=== PATIENT | male | born 1935 | race Caucasian/White ===

== ENCOUNTER → 2017-01-09 | Outpatient (CLI) | payer MEDICARE, OTHER ==
--- NOTE | 2017-01-09 10:14 | RADIOLOGY REPORT (SQ) ---
EXAM DESCRIPTION: CHEST PA/LATERAL COMPLETED DATE/TIME: 01/09/2017 9:52 am REASON FOR STUDY: PRE OP COMPARISON: None. EXAM PARAMETERS: NUMBER OF VIEWS: two views TECHNIQUE: Digital Frontal and Lateral radiographic views of the chest acquired. RADIATION DOSE: NA LIMITATIONS: none FINDINGS: LUNGS AND PLEURA: No opacities, masses or pneumothorax. No pleural effusion. MEDIASTINUM AND HILAR STRUCTURES: No masses or contour abnormalities. HEART AND VASCULAR STRUCTURES: Heart normal size. No evidence for failure. BONES: No acute findings. HARDWARE: None in the chest. OTHER: No other significant finding. IMPRESSION: NO SIGNIFICANT RADIOGRAPHIC FINDING IN THE CHEST. TECHNICAL DOCUMENTATION: JOB ID: [id number] [employer]- All Rights Reserved
[2017-01-09 10:33] LABS: ABSOLUTE EOSINOPHILS # (AUTO) 0.1 10^3/uL (0.0-0.6); ABSOLUTE LYMPHOCYTES (AUTO) 1.4 10^3/uL (0.5-4.7); ABSOLUTE MONOCYTES (AUTO) 0.4 10^3/uL (0.1-1.4); ABSOLUTE NEUT (AUTO) 5.4 10^3/uL (1.7-8.2); BASOPHILS % (AUTO) 0.5 % (0-2); EOSINOPHILS % (AUTO) 1.7 % (0-6); HEMOGLOBIN 12.3 g/dL (13.5-17.0); HGB HCT DIFFERENCE -0.1; LYMPHOCYTES % (AUTO) 18.5 % (13-45); MEAN CORPUSCULAR HEMOGLOBIN 27.7 pg (27.0-33.4); MEAN CORPUSCULAR HGB CONC 33.2 g/dL (32.0-36.0); MEAN CORPUSCULAR VOLUME 83 fl (80-97); MONOCYTES % (AUTO) 5.9 % (3-13); RED BLOOD COUNT 4.44 10^6/uL (4.35-5.55); RED CELL DISTRIBUTION WIDTH 14.1 % (11.5-14.0); SEGMENTED NEUTROPHILS % (AUTO) 73.4 % (42-78); WHITE BLOOD COUNT 7.4 10^3/uL (4.0-10.5)
[2017-01-09 10:51] LABS: ANION GAP 13 (5-19); BLOOD UREA NITROGEN 28 mg/dL (7-20); CALCIUM 9.7 mg/dL (8.4-10.2); CARBON DIOXIDE 27 mmol/L (22-30); CHLORIDE 102 mmol/L (98-107); CREATININE RESULT 1.33 mg/dL (0.52-1.25); GLUCOSE 149 mg/dL (75-110); POTASSIUM 4.9 mmol/L (3.6-5.0); SODIUM 142.3 mmol/L (137-145)
[2017-01-09 11:10] LABS: APPEARANCE,URINE CLEAR; BILIRUBIN,URINE NEGATIVE (NEGATIVE); GLUCOSE, URINE NEGATIVE (NEGATIVE); KETONES,URINE NEGATIVE (NEGATIVE); LEUKOCYTE ESTERASE,URINE NEGATIVE (NEGATIVE); NITRITE,URINE NEGATIVE (NEGATIVE); PROTEIN,URINE NEGATIVE (NEGATIVE); URINE SPECIFIC GRAVITY 1.017
--- NOTE | 2017-01-09 23:12 | EKG REPORT ---
SEVERITY:- ABNORMAL ECG - A FIB PROBABLE INFERIOR INFARCT, AGE INDETERMINATE : Confirmed by: Linda Maxwell 09-Jan-2017 23:11:03
== END ==
LOC: OD 09:06
PROVIDERS: ATTEND Orthopaedic Surgery
DX: Z01.810 Encounter for preprocedural cardiovascular examination (principal); Z01.812 Encounter for preprocedural laboratory examination; Z01.818 Encounter for other preprocedural examination; M17.0 Bilateral primary osteoarthritis of knee
CPT/HCPCS: 36415; 71020; 80048; 81001; 83036; 85025; 93005; 93010

== ENCOUNTER → 2017-03-07 | Outpatient (CLI) | payer MEDICARE, OTHER ==
[2017-03-07 12:15] LABS: ABSOLUTE EOSINOPHILS # (AUTO) 0.1 10^3/uL (0.0-0.6); ABSOLUTE LYMPHOCYTES (AUTO) 1.4 10^3/uL (0.5-4.7); ABSOLUTE MONOCYTES (AUTO) 0.4 10^3/uL (0.1-1.4); ABSOLUTE NEUT (AUTO) 5.9 10^3/uL (1.7-8.2); BASOPHILS % (AUTO) 0.6 % (0-2); EOSINOPHILS % (AUTO) 1.6 % (0-6); HEMATOCRIT 37.8 % (37.9-51.0); HEMOGLOBIN 12.4 g/dL (13.5-17.0); LYMPHOCYTES % (AUTO) 18.3 % (13-45); MEAN CORPUSCULAR HEMOGLOBIN 26.9 pg (27.0-33.4); MEAN CORPUSCULAR HGB CONC 32.8 g/dL (32.0-36.0); MEAN CORPUSCULAR VOLUME 82 fl (80-97); MONOCYTES % (AUTO) 5.6 % (3-13); PLATELET COUNT 203 10^3/uL (150-450); RED CELL DISTRIBUTION WIDTH 15.2 % (11.5-14.0); SEGMENTED NEUTROPHILS % (AUTO) 73.9 % (42-78); TOTAL CELLS COUNTED % (AUTO) 100 %; WHITE BLOOD COUNT 7.9 10^3/uL (4.0-10.5)
[2017-03-07 12:27] LABS: APPEARANCE,URINE CLEAR; BILIRUBIN,URINE NEGATIVE (NEGATIVE); COLOR,URINE YELLOW; GLUCOSE, URINE NEGATIVE (NEGATIVE); KETONES,URINE NEGATIVE (NEGATIVE); LEUKOCYTE ESTERASE,URINE NEGATIVE (NEGATIVE); NITRITE,URINE NEGATIVE (NEGATIVE); PROTEIN,URINE NEGATIVE (NEGATIVE); URINE SPECIFIC GRAVITY 1.016
[2017-03-07 12:35] LABS: ANION GAP 16 (5-19); BLOOD UREA NITROGEN 35 mg/dL (7-20); CALCIUM 10.4 mg/dL (8.4-10.2); CARBON DIOXIDE 23 mmol/L (22-30); CHLORIDE 103 mmol/L (98-107); GLUCOSE 143 mg/dL (75-110); SODIUM 141.5 mmol/L (137-145)
--- NOTE | 2017-03-07 12:42 | RADIOLOGY REPORT (SQ) ---
EXAM DESCRIPTION: CHEST PA/LATERAL COMPLETED DATE/TIME: 03/07/2017 11:56 am REASON FOR STUDY: PRE OP COMPARISON: 01/09/2017 EXAM PARAMETERS: NUMBER OF VIEWS: two views TECHNIQUE: Digital Frontal and Lateral radiographic views of the chest acquired. RADIATION DOSE: NA LIMITATIONS: none FINDINGS: LUNGS AND PLEURA: No opacities, masses or pneumothorax. No pleural effusion. MEDIASTINUM AND HILAR STRUCTURES: No masses or contour abnormalities. HEART AND VASCULAR STRUCTURES: Heart normal size. No evidence for failure. BONES: No acute findings. HARDWARE: None in the chest. OTHER: No other significant finding. IMPRESSION: NO SIGNIFICANT RADIOGRAPHIC FINDING IN THE CHEST. TECHNICAL DOCUMENTATION: JOB ID: [id number] [employer]- All Rights Reserved
--- NOTE | 2017-03-07 13:34 | EKG REPORT ---
SEVERITY:- ABNORMAL ECG - ATRIAL FIBRILLATION PROBABLE INFERIOR INFARCT, OLD : Confirmed by: Ariel Marie MD 07-Mar-2017 13:34:06
== END ==
LOC: OD 11:15 → EDSTATUS 03-13 11:15
PROVIDERS: ATTEND Orthopaedic Surgery
DX: Z01.810 Encounter for preprocedural cardiovascular examination (principal); Z01.812 Encounter for preprocedural laboratory examination; Z01.818 Encounter for other preprocedural examination; M17.11 Unilateral primary osteoarthritis, right knee; I10 Essential (primary) hypertension; E11.9 Type 2 diabetes mellitus without complications
CPT/HCPCS: 36415; 71020; 80048; 81001; 83036; 85025; 93005; 93010

== ENCOUNTER 2017-04-29 08:46 | Inpatient (IN) | payer MEDICARE, OTHER ==
[2017-04-23 10:09] LABS: APPEARANCE,URINE CLEAR; BILIRUBIN,URINE NEGATIVE (NEGATIVE); COLOR,URINE YELLOW; GLUCOSE, URINE NEGATIVE (NEGATIVE); KETONES,URINE NEGATIVE (NEGATIVE); LEUKOCYTE ESTERASE,URINE NEGATIVE (NEGATIVE); NITRITE,URINE NEGATIVE (NEGATIVE); PROTEIN,URINE NEGATIVE (NEGATIVE); URINE SPECIFIC GRAVITY 1.019
[2017-04-23 10:10] LABS: ABSOLUTE EOSINOPHILS # (AUTO) 0.1 10^3/uL (0.0-0.6); ABSOLUTE LYMPHOCYTES (AUTO) 1.7 10^3/uL (0.5-4.7); ABSOLUTE MONOCYTES (AUTO) 0.5 10^3/uL (0.1-1.4); ABSOLUTE NEUT (AUTO) 6.8 10^3/uL (1.7-8.2); BASOPHILS % (AUTO) 0.4 % (0-2); EOSINOPHILS % (AUTO) 1.2 % (0-6); HEMATOCRIT 36.2 % (37.9-51.0); HEMOGLOBIN 11.8 g/dL (13.5-17.0); LYMPHOCYTES % (AUTO) 18.4 % (13-45); MEAN CORPUSCULAR HEMOGLOBIN 26.7 pg (27.0-33.4); MEAN CORPUSCULAR HGB CONC 32.5 g/dL (32.0-36.0); MEAN CORPUSCULAR VOLUME 82 fl (80-97); MONOCYTES % (AUTO) 5.8 % (3-13); PLATELET COUNT 182 10^3/uL (150-450); RED BLOOD COUNT 4.41 10^6/uL (4.35-5.55); RED CELL DISTRIBUTION WIDTH 16.3 % (11.5-14.0); SEGMENTED NEUTROPHILS % (AUTO) 74.2 % (42-78); TOTAL CELLS COUNTED % (AUTO) 100 %; WHITE BLOOD COUNT 9.2 10^3/uL (4.0-10.5)
[2017-04-23 10:32] LABS: ANION GAP 11 (5-19); BLOOD UREA NITROGEN 27 mg/dL (7-20); CALCIUM 10.1 mg/dL (8.4-10.2); CARBON DIOXIDE 29 mmol/L (22-30); CHLORIDE 104 mmol/L (98-107); GLUCOSE 96 mg/dL (75-110); POTASSIUM 4.7 mmol/L (3.6-5.0); SODIUM 143.9 mmol/L (137-145)
--- NOTE | 2017-04-23 22:42 | EKG REPORT ---
SEVERITY:- ABNORMAL ECG - ATRIAL FIBRILLATION PROBABLE INFERIOR INFARCT, AGE INDETERMINATE BORDERLINE R WAVE PROGRESSION, ANTERIOR LEADS : Confirmed by: Linda Maxwell 23-Apr-2017 22:42:12
[~2017-04-29 08:46] MED LIST: BUPIVACAINE INJ/PF LIPOSOME/PF 266 MG/20 ML SDV IJ PRN; IBUPROFEN 800 MG/NS 250 ML IV PRN; LACTATED RINGERS 1000 ML IV PRN; LIDOCAINE 0.5% INJ-PF (5 MG/ML) 50 ML SDV SUBCUT PRN; SCOPOLAMINE HYDROBROMIDE 1.5 MG PATCH.TD72 TOP PRN
--- NOTE | 2017-04-29 09:11 | Physician Advisory Note ---
Physician Advisor ProgressNote .: Pursuant to the plan for Eduardo Mendosa, I have reviewed the medical record for this patient. Physician Advisor Statement: Good documentation of co-morbidities, what worsens pain, use of cane & Mobic, exam findings, xray findings. Please specify WHICH ADLs are INTERFERED WITH (not just painful) due to OA knee. Status: Appropriate for Inpatient for TKA. Discussion: 81yo w/HTN, HLD, Afib on Eliquis, DM-2, pre-op anemia, overweight w /BMI 32.6, 2 colon blockages iin past, on Flomax (likely urinary obstruction problems), & spironolactone, HCTZ, Diovan (diuretics/ACEI, so increased risk for MEGAN & electrolyte disturbances). Will need assistance w/ADLs after d/c per pre-op screen. Thanks! CK
[2017-04-29 10:05] LABS: INTERNATIONAL RATION (INR) 1.03; PROTHROMBIN TIME 14.2 SEC (11.4-15.4)
[2017-04-29 10:06] LABS: PARTIAL THROMBOPLASTIN TIME 31.7 SEC (23.5-35.8)
--- NOTE | 2017-04-29 10:12 | EKG REPORT ---
SEVERITY:- ABNORMAL ECG - SINUS RHYTHM, ARTIFACTS, CONSIDER A FIB, REC REPEAT EKG VENTRICULAR PREMATURE COMPLEX PROBABLE INFERIOR INFARCT, AGE INDETERMINATE REPOL ABNRM SUGGESTS ISCHEMIA, DIFFUSE LEADS VS ARTIFACT : Confirmed by: Linda Maxwell 29-Apr-2017 10:12:07
[2017-04-29] MEDS: VANCOMYCIN HCL 1,000 MG in DEXTROSE 5%-WATER 250 ML IV PRN ×3 (10:20→16:51)
[2017-04-29] MEDS: LANSOPRAZOLE 15 MG TAB.RAP.DR PO PRN ×4 (10:20→16:47)
[2017-04-29 10:22] LABS: POTASSIUM 4.7 mmol/L (3.6-5.0)
[2017-04-29] MEDS: OXYCODONE HCL SR 10 MG TABLET PO PRN ×2 (10:50→16:48)
[2017-04-29] MEDS ORDERED: THROMBIN (BOVINE) TOPICAL 20000 UNIT VIAL ONE (10:55)
[2017-04-29] MEDS ORDERED: BUPIVACAINE INJ/PF LIPOSOME/PF 266 MG/20 ML SDV ONE (10:55)
[2017-04-29] MEDS ORDERED: THROMBIN (BOVINE) 5000 UNIT EPITAXIS KIT ONE (10:55)
[2017-04-29] MEDS ORDERED: ONDANSETRON HCL INJ/PF 4 MG/2 ML SDV ONE (11:12)
[2017-04-29] MEDS ORDERED: PROPOFOL INJ 200 MG/20 ML VIAL IV ONE (11:12)
[2017-04-29] MEDS ORDERED: DEXAMETHASONE SOD PHOSPHATE INJ 4 MG/1 ML VIAL ONE (11:12)
[2017-04-29] MEDS ORDERED: MIDAZOLAM 2 MG/2 ML INJ ONE (11:12)
[2017-04-29] MEDS ORDERED: TRANEXAMIC ACID INJ/PF 1,000 MG/10 ML SDV IV ONE ×3 (11:13→15:00)
[2017-04-29] MEDS ORDERED: FENTANYL CITRATE INJ/PF 100 MCG/2 ML AMPUL IV PRN ×2 (12:11)
[2017-04-29] MEDS ORDERED: MORPHINE SULFATE 10 MG/ML INJ IV PRN (12:11)
[2017-04-29] MEDS ORDERED: OXYCODONE-ACETAMINOPHEN 5-325 MG TABLET PO PRN ×2 (12:11)
[2017-04-29] MEDS ORDERED: MEPERIDINE HCL/PF INJ 25 MG/1 ML DISP.SYRIN IV PRN (12:11)
[2017-04-29] MEDS ORDERED: PROMETHAZINE HCL INJ 25 MG/1 ML VIAL IV PRN (12:11)
[2017-04-29] MEDS ORDERED: DIPHENHYDRAMINE HCL 50 MG/ML VIAL IV PRN ×2 (12:11→12:56)
--- NOTE | 2017-04-29 12:34 | Operative Report ---
Operative Report DATE OF SURGERY: 04/29/17 PREOPERATIVE DIAGNOSIS: Right knee arthritis OPERATION: Right knee arthroplasty SURGEON: VIRGIE FRASER 1ST [employer]ANT: ULI HURD ANESTHESIA: Spinal TISSUE REMOVED OR ALTERED: Bone to pathology ESTIMATED BLOOD LOSS: 100 PROCEDURE: Implants used: Femur: Cushing triathlon #5 CR femur Tibia: 5 tibia Tibial liner: 9 mm CS spacer Patella: 38 mm oval patella Procedure with the patient supine on the operating table the right the limb is prepped and draped in a sterile fashion. The limb was elevated for exsanguination and the tourniquet inflated to 280 torr. A standard midline median parapatellar approach the knee is taken. Access is gained to the femoral canal through the intercondylar notch. Intramedullary alignment instrumentation used to resect 10 mm of distal femur in 5 of valgus. Sizing guide indicated a size 5 femur. Appropriate cutting jig is then used to fashion anterior posterior and chamfer cuts. A trial reduction femurs performed and this is judged to be adequate. Attention was next turned to the tibia. Using an extra medullary alignment system 9 millimeters was resected off the lateral tibial plateau. This is sized to a size 5 tibia. A trial reduction was now performed with a 5 femur and a 5 tibia using a 9 millimeters spacer. It is full extension and central patellofemoral tracking. The articular surface the patella was next resected using an oscillating saw. All trial implants were removed. Polymethylmethacrylate is mixed and used to cement the above implants in place. On adequate curing the cement excess cement was removed the tourniquet was deflated hemostasis obtained the wound is then closed in layers using interrupted Vicryl followed by antonina. A sterile compressive dressing was applied and the patient returned to recovery room in satisfactory condition.
[2017-04-29] MEDS ORDERED: ONDANSETRON HCL INJ/PF 4 MG/2 ML SDV IV PRN (12:56)
[2017-04-29] MEDS ORDERED: ZOLPIDEM TARTRATE 5 MG TABLET PO PRN (12:56)
[2017-04-29] MEDS ORDERED: ONDANSETRON 4 MG TAB.RAPDIS PO PRN (12:56)
[2017-04-29] MEDS ORDERED: ACETAMINOPHEN 325 MG TABLET PO PRN (12:56)
[2017-04-29] MEDS ORDERED: MAG HYDROX/AL HYDROX/SIMETH SUSP 30 ML UDCUP PO PRN (12:56)
[2017-04-29] MEDS ORDERED: HYDROMORPHONE HCL INJ/PF 2 MG/ML AMPULE IV PRN (13:01)
--- NOTE | 2017-04-29 14:49 | RADIOLOGY REPORT (SQ) ---
EXAM DESCRIPTION: KNEE RIGHT 2 VIEWS COMPLETED DATE/TIME: 04/29/2017 2:19 pm REASON FOR STUDY: Post OP -Long Cassette in PACU M17.11 UNILATERAL PRIMARY OSTEOARTHRITIS, RIGHT KN EE COMPARISON: None. NUMBER OF VIEWS: Two view(s). TECHNIQUE: Digital radiographic images of the right knee post-procedure. LIMITATIONS: None. FINDINGS: BONES: No worrisome or unexpected findings post-procedure. DEVICE: Total knee replacement. SOFT TISSUES: No worrisome findings. Expected postoperative soft tissue changes. IMPRESSION: SATISFACTORY POSTOPERATIVE RIGHT KNEE. TECHNICAL DOCUMENTATION: JOB ID: [id number] [employer]- All Rights Reserved
[2017-04-29] MEDS: CEFAZOLIN INJ 1 GM VIAL IV PRN ×3 (16:45→16:51)
[2017-04-29] MEDS ORDERED: SPIRONOLACTONE 25 MG TABLET PO SCH (18:00)
[2017-04-29] MEDS: SPIRONOLACTONE 25 MG TABLET PO SCH (18:15)
[2017-04-29] MEDS ORDERED: ACETAMINOPHEN 100 ML IV ONE (19:00)
[2017-04-29] MEDS: IBUPROFEN 800 MG in NORMAL SALINE 250 ML IV SCH (19:53)
[2017-04-29] MEDS: OXYCODONE HCL SR 10 MG TABLET PO SCH (21:37)
[2017-04-29] MEDS: SIMVASTATIN 40 MG TABLET PO SCH (21:38)
[2017-04-29] MEDS: GABAPENTIN 300 MG CAPSULE PO SCH (21:38)
[2017-04-30] MEDS ORDERED: VANCOMYCIN HCL 1,000 MG in DEXTROSE 5%-WATER 250 ML IV ONE (00:56)
[2017-04-30] MEDS: IBUPROFEN 800 MG in NORMAL SALINE 250 ML IV SCH ×3 (03:10→20:12)
[2017-04-30] MEDS: SPIRONOLACTONE 25 MG TABLET PO SCH ×2 (05:19→17:53)
[2017-04-30] MEDS: LANSOPRAZOLE 30 MG TAB.RAP.DR PO SCH (05:19)
[2017-04-30 06:38] LABS: HEMATOCRIT 31.7 % (37.9-51.0); HEMOGLOBIN 10.3 g/dL (13.5-17.0); MEAN CORPUSCULAR HEMOGLOBIN 27.1 pg (27.0-33.4); MEAN CORPUSCULAR HGB CONC 32.5 g/dL (32.0-36.0); MEAN CORPUSCULAR VOLUME 83 fl (80-97); PLATELET COUNT 145 10^3/uL (150-450); RED CELL DISTRIBUTION WIDTH 15.9 % (11.5-14.0); WHITE BLOOD COUNT 8.7 10^3/uL (4.0-10.5)
[2017-04-30 06:56] LABS: ANION GAP 8 (5-19); CARBON DIOXIDE 29 mmol/L (22-30); CHLORIDE 103 mmol/L (98-107); GLUCOSE 185 mg/dL (75-110); SODIUM 139.9 mmol/L (137-145)
[2017-04-30 06:57] LABS: BLOOD UREA NITROGEN 28 mg/dL (7-20)
--- NOTE | 2017-04-30 07:06 | PDOC DISCHARGE SUMMARY ---
General - Admit/Disc Date/PCP Admission Date/Primary Care Provider: 04/29/17 08:46 LORIE PUGA MD Discharge Date: 04/30/17 - Discharge Diagnosis (1) Arthritis of right knee Is this a current diagnosis for this admission?: Yes - Additional Information Resuscitation Status: Full Code Discharge Diet: As Tolerated, Regular Discharge Activity: Activity As Tolerated, No Driving, No tub bath, Walk Frequently Home Medications: Apixaban [Eliquis 5 mg Tablet] 5 mg PO DAILY 03/07/17 Glimepiride 4 mg PO DAILY 03/07/17 Simvastatin [Zocor 40 mg Tablet] 40 mg PO QHS 03/07/17 Spironolactone 25 mg PO BID 03/07/17 Tamsulosin HCl 0.4 mg PO DAILY 03/07/17 Valsartan/Hydrochlorothiazide [Diovan Hct 160-12.5 mg Tab] 160 mg PO DAILY 03/07 Vit D3-Vit K/Berberine/Hops [Ostera Tablet] 2,000 unit PO DAILY 03/07/17 Gabapentin 300 mg PO QHS 04/23/17 Hydrocodone/Acetaminophen [Corona 5-325 mg Tablet] 1 tab PO ASDIR PRN 04/23/17 Meloxicam 7.5 mg PO DAILY 04/23/17 Metoprolol Succinate 12.5 mg PO DAILY 04/23/17 History of Present Illness History of Present Illness: SUNNY ADAM is a 81 year old male with progressive pain and decrease in functional mobility due to right knee arthritis. He is admitted to the hospital for elective total right knee arthroplasty. Hospital Course Hospital Course: 81-year-old white male with progressive pain and decreased functional mobility due to right knee arthritis. He is admitted through the OR and undergoes uncomplicated elective total right knee arthroplasty. He is taken to PACU in satisfactory condition. He is then transferred to the surgical floor where she was seen for weightbearing as tolerated by physical therapy and pain control by nursing staff and Dr. Blancas. He makes progress with physical therapy ambulating up to 60 feet independently. His pain was well controlled. He will be discharged to his home today with home health nursing, home physical therapy , wheeled walker, bedside commode. Physical Exam Vital Signs: Temp Pulse Resp BP Pulse Ox 36.6 C 74 16 124/62 98 04/30/17 04:17 04/30/17 04:17 04/30/17 04:17 04/30/17 04:17 04/30/17 04:17 Intake & Output 04/29/17 04/30/17 05/01/17 06:59 06:59 06:59 Intake Total 3090 Output Total 2300 Balance 790 General appearance: PRESENT: no acute distress, well-developed, well-nourished Head exam: PRESENT: atraumatic, normocephalic Respiratory exam: PRESENT: unlabored Pulses: PRESENT: normal dorsalis pedis pul, +2 pedal pulses bilateral Vascular exam: PRESENT: normal capillary refill Additional comments: Patient sitting upright in hospital bed with bilateral lower extremities in full extension. His OpSite compression dressing is in place and is clean dry and intact. This is removed and underlying OpSite dressings are clean dry and intact. These are left in place. There is minimal pedal edema and he has brisk capillary refill to bilateral lower extremities. His leg lengths are equal and his distal neurovascular exam is intact. Musculoskeletal exam: PRESENT: ambulatory Additional comments: Patient makes progress of physical therapy ambulating up to 60 feet independently. He will continue to work with home physical therapy to improve strength and range of motion of right lower extremity. Neurological exam: PRESENT: alert, awake, oriented to person, oriented to place , oriented to time, oriented to situation, CN II-XII grossly intact. ABSENT: motor sensory deficit Psychiatric exam: PRESENT: appropriate affect, normal mood. ABSENT: homicidal ideation, suicidal ideation Skin exam: PRESENT: dry, intact, warm. ABSENT: cyanosis, rash Results Laboratory Results: 04/30/17 05:16 04/29/17 04/30/17 09:41 05:16 WBC 8.7 RBC 3.80 L Hgb 10.3 L Hct 31.7 L MCV 83 MCH 27.1 MCHC 32.5 RDW 15.9 H Plt Count 145 L Potassium 4.7 Glucose 124 H Impressions: Knee X-Ray 04/29/17 12:57 IMPRESSION: SATISFACTORY POSTOPERATIVE RIGHT KNEE. Plan Discharge Plan: 81-year-old white male 1 day status post total right knee arthroplasty. Patient has made progress with physical therapy ambulating 60 feet independently. He will continue to work with home physical therapy to improve strength range of motion and distance of independent ambulation of right lower extremity. His pain has been well controlled in the hospital. His OpSite dressing is clean dry and intact and compression dressing was removed. He will be discharged to his home today with home health nursing, home physical therapy , wheeled walker and bedside commode. He will follow-up with [facility] for surgery Dr. Blancas 2 weeks postoperatively for reevaluation and staple removal. Time Spent: Less than 30 Minutes
[2017-04-30] MEDS: ASPIRIN 81 MG TABLET, CHEWABLE PO SCH (09:47)
[2017-04-30] MEDS: OXYCODONE HCL SR 10 MG TABLET PO SCH ×2 (09:47→21:36)
[2017-04-30] MEDS: VALSARTAN 160 MG TABLET PO SCH (09:54)
[2017-04-30] MEDS: TAMSULOSIN HCL 0.4 MG CAP.SR.24H PO SCH (09:55)
[2017-04-30] MEDS: METOPROLOL SUCCINATE 25 MG TAB.SR.24H PO SCH (09:55)
[2017-04-30] MEDS: GLIMEPIRIDE 4 MG TABLET PO SCH (09:56)
[2017-04-30] MEDS: HYDROCHLOROTHIAZIDE 12.5 MG CAPSULE PO SCH (09:56)
[2017-04-30] MEDS ORDERED: HOPS PO SCH (10:00)
[2017-04-30] MEDS ORDERED: VIT D3 VIT K PO SCH (10:00)
[2017-04-30] MEDS ORDERED: HYDROCHLOROTHIAZIDE PO SCH (10:00)
[2017-04-30] MEDS ORDERED: VALSARTAN PO SCH (10:00)
[2017-04-30] MEDS ORDERED: [UNRECOGNIZED DRUG - OTHER] PO SCH (10:00)
[2017-04-30] MEDS ORDERED: BERBERINE PO SCH (10:00)
[2017-04-30] MEDS: OXYCODONE HCL IR 5 MG TABLET PO PRN (11:30)
[2017-04-30] MEDS: GABAPENTIN 300 MG CAPSULE PO SCH (21:36)
[2017-04-30] MEDS: SIMVASTATIN 40 MG TABLET PO SCH (21:36)
[2017-05-01] MEDS: IBUPROFEN 800 MG in NORMAL SALINE 250 ML IV SCH ×2 (03:00→12:24)
[2017-05-01] MEDS: SPIRONOLACTONE 25 MG TABLET PO SCH ×2 (05:16→18:24)
[2017-05-01] MEDS: LANSOPRAZOLE 30 MG TAB.RAP.DR PO SCH (05:16)
[2017-05-01 06:20] LABS: HEMATOCRIT 29.9 % (37.9-51.0); HEMOGLOBIN 9.7 g/dL (13.5-17.0); MEAN CORPUSCULAR HEMOGLOBIN 27.1 pg (27.0-33.4); MEAN CORPUSCULAR HGB CONC 32.5 g/dL (32.0-36.0); MEAN CORPUSCULAR VOLUME 83 fl (80-97); PLATELET COUNT 139 10^3/uL (150-450); RED BLOOD COUNT 3.58 10^6/uL (4.35-5.55); RED CELL DISTRIBUTION WIDTH 16.4 % (11.5-14.0)
--- NOTE | 2017-05-01 07:07 | PDOC PROGRESS REPORT ---
Subjective Progress Note for:: 05/01/17 Subjective:: 81-year-old white male 2 days status post total right knee arthroplasty. Patient was set up for discharge yesterday however physical therapy was concerned that he was not ready. He is sitting upright in hospital bed with legs over the bedside. His OpSite dressing is saturated at the distal margin with sarah blood. Reason For Visit: RIGHT KNEE ARTHRITIS Physical Exam Vital Signs: Temp Pulse Resp BP Pulse Ox 36.3 C 99 20 113/60 97 05/01/17 04:25 05/01/17 04:25 05/01/17 04:25 05/01/17 04:25 05/01/17 04:25 Intake & Output 04/30/17 05/01/17 05/02/17 06:59 06:59 06:59 Intake Total 3090 1390 Output Total 2300 260 Balance 790 1130 Physical Exam: Physical exam grossly unchanged from exam completed on April 30, 2017. General appearance: PRESENT: no acute distress, well-developed, well-nourished Head exam: PRESENT: atraumatic, normocephalic Respiratory exam: PRESENT: unlabored Pulses: PRESENT: normal dorsalis pedis pul, +2 pedal pulses bilateral Vascular exam: PRESENT: normal capillary refill Additional comments: Patient OpSite dressing is saturated with sarah blood at the distal margin. This is removed and replaced. New dressing is clean dry and intact. Leg lengths are equal brisk capillary refill to toes on bilateral lower extremities and distal neurovascular exam is intact. Musculoskeletal exam: PRESENT: ambulatory Additional comments: Patient continue to work with physical therapy yesterday ambulating 150 feet. He will continue to work with home PT to improve strength range of motion of right lower extremity. Neurological exam: PRESENT: alert, awake, oriented to person, oriented to place , oriented to time, oriented to situation, CN II-XII grossly intact. ABSENT: motor sensory deficit Psychiatric exam: PRESENT: appropriate affect, normal mood. ABSENT: homicidal ideation, suicidal ideation Skin exam: PRESENT: dry, intact, warm. ABSENT: cyanosis, rash Results Laboratory Results: 05/01/17 05:29 04/30/17 05:16 04/30/17 05/01/17 05:16 05:29 WBC 8.0 RBC 3.58 L Hgb 9.7 L Hct 29.9 L MCV 83 MCH 27.1 MCHC 32.5 RDW 16.4 H Plt Count 139 L Sodium 139.9 Potassium 5.0 Chloride 103 Carbon Dioxide 29 Anion Gap 8 BUN 28 H Creatinine 1.31 H Est GFR ( Amer) > 60 Est GFR (Non-Af Amer) 52 L Glucose 185 H Calcium 9.0 Impressions: Knee X-Ray 04/29/17 12:57 IMPRESSION: SATISFACTORY POSTOPERATIVE RIGHT KNEE. Assessment & Plan - Diagnosis (1) Arthritis of right knee Is this a current diagnosis for this admission?: Yes - Plan Summary Plan Summary: 81-year-old white male 2 days status post total right knee arthroplasty. Patient was initially set up for discharge yesterday however physical therapy had concerns that he was not ready. We will attempt discharged to his home today with home health nursing, home physical therapy, wheeled walker and bedside commode. He will follow-up with [facility] for surgery 2 weeks postoperatively for staple removal and reevaluation. His OpSite dressing was saturated with sarah blood this morning and it was changed and new clean dry dressing was placed.
--- NOTE | 2017-05-01 09:11 | PDOC PROGRESS REPORT ---
Subjective Progress Note for:: 05/01/17 Reason For Visit: RIGHT KNEE ARTHRITIS 81-year-old white male status post right knee arthroplasty with persistent postoperative rehabilitation issues that do not make him safe to go home. Physical Exam Vital Signs: Temp Pulse Resp BP Pulse Ox 36.3 C 99 20 113/60 97 05/01/17 04:25 05/01/17 04:25 05/01/17 04:25 05/01/17 04:25 05/01/17 04:25 Intake & Output 04/30/17 05/01/17 05/02/17 06:59 06:59 06:59 Intake Total 3090 1790 Output Total 2300 810 Balance 790 980 Results Laboratory Results: 05/01/17 05:29 04/30/17 05:16 05/01/17 05:29 WBC 8.0 RBC 3.58 L Hgb 9.7 L Hct 29.9 L MCV 83 MCH 27.1 MCHC 32.5 RDW 16.4 H Plt Count 139 L Impressions: Knee X-Ray 04/29/17 12:57 IMPRESSION: SATISFACTORY POSTOPERATIVE RIGHT KNEE. Assessment & Plan - Plan Summary Plan Summary: Discharge plan will be changed from a discharge home with home health to a halfway facility placement. Social work is consulted for assistance.
[2017-05-01] MEDS: VALSARTAN 160 MG TABLET PO SCH (09:14)
[2017-05-01] MEDS: TAMSULOSIN HCL 0.4 MG CAP.SR.24H PO SCH (09:14)
[2017-05-01] MEDS: METOPROLOL SUCCINATE 25 MG TAB.SR.24H PO SCH (09:15)
[2017-05-01] MEDS: ASPIRIN 81 MG TABLET, CHEWABLE PO SCH (09:15)
[2017-05-01] MEDS: GLIMEPIRIDE 4 MG TABLET PO SCH (09:15)
[2017-05-01] MEDS: HYDROCHLOROTHIAZIDE 12.5 MG CAPSULE PO SCH (09:15)
[2017-05-01] MEDS: OXYCODONE HCL SR 10 MG TABLET PO SCH (10:14)
[2017-05-01] MEDS: OXYCODONE HCL IR 5 MG TABLET PO PRN (20:01)
[2017-05-01] MEDS: SIMVASTATIN 40 MG TABLET PO SCH (22:12)
[2017-05-01] MEDS: GABAPENTIN 300 MG CAPSULE PO SCH (22:12)
[2017-05-02] MEDS: LANSOPRAZOLE 30 MG TAB.RAP.DR PO SCH (05:25)
[2017-05-02] MEDS: SPIRONOLACTONE 25 MG TABLET PO SCH ×2 (05:25→18:37)
[2017-05-02 06:34] LABS: HEMATOCRIT 30.4 % (37.9-51.0); HEMOGLOBIN 9.9 g/dL (13.5-17.0); MEAN CORPUSCULAR HEMOGLOBIN 27.1 pg (27.0-33.4); MEAN CORPUSCULAR HGB CONC 32.6 g/dL (32.0-36.0); MEAN CORPUSCULAR VOLUME 83 fl (80-97); PLATELET COUNT 150 10^3/uL (150-450); RED BLOOD COUNT 3.65 10^6/uL (4.35-5.55); RED CELL DISTRIBUTION WIDTH 16.4 % (11.5-14.0); WHITE BLOOD COUNT 8.5 10^3/uL (4.0-10.5)
--- NOTE | 2017-05-02 07:08 | PDOC TRANSFER SUMMARY ---
General - Admit/Disc Date/PCP Admission Date/Primary Care Provider: 04/29/17 08:46 LORIE PUGA MD Discharge Date: 05/02/17 - Discharge Diagnosis (1) Arthritis of right knee Is this a current diagnosis for this admission?: Yes - Additional Information Resuscitation Status: Full Code Discharge Diet: As Tolerated, Regular Discharge Activity: Activity As Tolerated, No Driving, No tub bath, Walk Frequently Home Medications: Apixaban [Eliquis 5 mg Tablet] 5 mg PO DAILY 03/07/17 Glimepiride 4 mg PO DAILY 03/07/17 Simvastatin [Zocor 40 mg Tablet] 40 mg PO QHS 03/07/17 Spironolactone 25 mg PO BID 03/07/17 Tamsulosin HCl 0.4 mg PO DAILY 03/07/17 Valsartan/Hydrochlorothiazide [Diovan Hct 160-12.5 mg Tab] 160 mg PO DAILY 03/07 Vit D3-Vit K/Berberine/Hops [Ostera Tablet] 2,000 unit PO DAILY 03/07/17 Gabapentin 300 mg PO QHS 04/23/17 Hydrocodone/Acetaminophen [[place] 5-325 mg Tablet] 1 tab PO ASDIR PRN 04/23/17 Meloxicam 7.5 mg PO DAILY 04/23/17 Metoprolol Succinate 12.5 mg PO DAILY 04/23/17 History of Present Illness Admission Date/PCP: 04/29/17 08:46 LORIE PUGA MD History of Present Illness: Patient is an 81-year-old white male with progressive bilateral knee pain and functional disability secondary to bilateral knee osteoarthritis. Patient is admitted for elective right knee arthroplasty. Hospital Course Hospital Course: Patient is admitted through the operating where he undergoes uncomplicated right knee arthroplasty. Is returned to floor in satisfactory condition. He makes limited progress with physical therapy. Initial plan was for discharge home but because of his functional status is changed to a snf facility placement. Physical Exam Vital Signs: Temp Pulse Resp BP Pulse Ox 36.7 C 89 17 109/41 L 91 L 05/01/17 22:57 05/01/17 22:57 05/01/17 22:57 05/01/17 22:57 05/01/17 22:57 Intake & Output 05/01/17 05/02/17 05/03/17 06:59 06:59 06:59 Intake Total 1790 810 Output Total 810 625 Balance 980 185 Weight 122.5 kg General appearance: PRESENT: no acute distress Head exam: PRESENT: normocephalic Respiratory exam: PRESENT: unlabored Cardiovascular exam: PRESENT: RRR Pulses: PRESENT: +1 pedal pulses bilateral Vascular exam: PRESENT: normal capillary refill GI/Abdominal exam: PRESENT: soft Rectal exam: PRESENT: deferred Musculoskeletal exam: PRESENT: other - Right knee dressing clean dry and intact. Minimal pedal edema. Distal neurovascular examination is intact. Neurological exam: PRESENT: alert, awake, oriented to person, oriented to place , oriented to time, oriented to situation. ABSENT: motor sensory deficit Psychiatric exam: PRESENT: appropriate affect, normal mood. ABSENT: homicidal ideation, suicidal ideation Skin exam: PRESENT: dry, intact, warm. ABSENT: cyanosis, rash Results Laboratory Results: 05/02/17 06:00 04/30/17 05:16 05/02/17 06:00 WBC 8.5 RBC 3.65 L Hgb 9.9 L Hct 30.4 L MCV 83 MCH 27.1 MCHC 32.6 RDW 16.4 H Plt Count 150 Impressions: Knee X-Ray 04/29/17 12:57 IMPRESSION: SATISFACTORY POSTOPERATIVE RIGHT KNEE. Status: Imported from PACS Transfer Plan - Disposition Transfer Plan: Patient to be transferred to snf facility for ongoing rehabilitation for weightbearing as tolerated. Plan Discharge Plan: Follow-up with Dr. Blancas the [facility] for surgery in 2 weeks for staple removal.
[2017-05-02] MEDS: GLIMEPIRIDE 4 MG TABLET PO SCH (09:46)
[2017-05-02] MEDS: ASPIRIN 81 MG TABLET, CHEWABLE PO SCH (09:46)
[2017-05-02] MEDS: TAMSULOSIN HCL 0.4 MG CAP.SR.24H PO SCH (09:46)
[2017-05-02] MEDS: METOPROLOL SUCCINATE 25 MG TAB.SR.24H PO SCH (09:47)
[2017-05-02] MEDS: VALSARTAN 160 MG TABLET PO SCH (09:48)
[2017-05-02] MEDS: HYDROCHLOROTHIAZIDE 12.5 MG CAPSULE PO SCH (09:48)
[2017-05-02] MEDS: OXYCODONE HCL IR 5 MG TABLET PO PRN (18:34)
[2017-05-02 19:40] VITALS: BP 115/53
== END 2017-05-02 20:01 | DRG 470 ==
LOC: INOR 08:46 → 4S 16:14
PROVIDERS: ADMIT Orthopaedic Surgery; ATTEND Orthopaedic Surgery
PROC: 0SRC0J9 Replacement of Right Knee Joint with Synthetic Substitute, Cemented, Open Approach (ICD-10-PCS; principal; 2017-04-29 11:15)
DX: M17.11 Unilateral primary osteoarthritis, right knee (principal); I10 Essential (primary) hypertension; E78.5 Hyperlipidemia, unspecified; E11.9 Type 2 diabetes mellitus without complications; Z79.899 Other long term (current) drug therapy
CPT/HCPCS: 01402; 36415; 80048; 81001; 82947; 82962; 83036; 84132; 85025; 85027; 85610; 85730; 88305; 88311; 93005; 93010; 94799; C2625; C9290; G8978-GP; G8979-GP; G8987-GO; G8988-GO; J0131; J0690; J1100; J1170; J1741; J2250; J2405; J2704; J3370; J3490; J7050; J7060

== ENCOUNTER → 2017-10-09 | Outpatient (CLI) | payer MEDICARE, OTHER ==
--- NOTE | 2017-10-09 15:43 | RADIOLOGY REPORT (SQ) ---
EXAM DESCRIPTION: CT HEAD WITHOUT COMPLETED DATE/TIME: 10/09/2017 3:32 pm REASON FOR STUDY: H53.2 DIPLOPIA H53.2 DIPLOPIA COMPARISON: None. TECHNIQUE: Axial images acquired through the brain without intravenous contrast. Images reviewed wi th bone, brain and subdural windows. Images stored on PACS. All CT scanners at this facility use dose modulation, iterative reconstruction, and/or weight based d osing when appropriate to reduce radiation dose to as low as reasonably achievable (ALARA). [facility]: Dose Right [facility]: CareDose [facility]: Dose Right [facility]: Teradose 4D [facility]: Safehis RADIATION DOSE: CT Rad equipment meets quality standard of care and radiation dose reduction techniq ues were employed. CTDIvol: 48.6 mGy. DLP: 979 mGy-cm.mGy. LIMITATIONS: None. FINDINGS: VENTRICLES: Prominent. CEREBRUM: No masses. No hemorrhage. No midline shift. Areas of low density in the white matter mos t likely due to chronic micro-vascular ischemic change. No evidence for acute infarction. CEREBELLUM: No masses. No hemorrhage. No alteration of density. No evidence for acute infarction. EXTRAAXIAL SPACES: Age-related involutional change. No fluid collections. No masses. ORBITS AND GLOBE: See results under facial CT CALVARIUM: No fracture. PARANASAL SINUSES: See results under facial CT SOFT TISSUES: No mass or hematoma. OTHER: No other significant finding. IMPRESSION: CHRONIC CHANGES OF ATROPHY AND MICROVASCULAR ISCHEMIA. NO ACUTE PROCESS. EVIDENCE OF ACUTE STROKE: NO. TECHNICAL DOCUMENTATION: JOB ID: [id number] Quality ID # [id number]: Final reports with documentation of one or more dose reduction techniques (e.g., Au tomated exposure control, adjustment of the mA and/or kV according to patient size, use of iterative reconstruction technique) 2010 [employer]- All Rights Reserved Reading location - IP/workstation name: [email or web address]
--- NOTE | 2017-10-09 15:55 | RADIOLOGY REPORT (SQ) ---
EXAM DESCRIPTION: CT ORBIT/SELLA WITHOUT COMPLETED DATE/TIME: 10/09/2017 3:32 pm REASON FOR STUDY: H53.2 DIPLOPIA H53.2 DIPLOPIA COMPARISON: None. TECHNIQUE: Noncontrasted images through the orbits windowed for bone and soft tissue. Additional co aristides and sagittal reconstructed images reviewed. All images stored on PACS. All CT scanners at this facility use dose modulation, iterative reconstruction, and/or weight based d osing when appropriate to reduce radiation dose to as low as reasonably achievable (ALARA). [facility]: Dose Right [facility]: CareDose [facility]: Dose Right [facility]: Teradose 4D [facility]: EmergenSee RADIATION DOSE: mGy. LIMITATIONS: None. FINDINGS: FACIAL BONES: There are fractures of the left zygomatic arch, lateral wall of the left max illary antra, and there is a defect in the orbital floor on the left which has the appearance of a bl owout fracture. ORBITS: Air is identified in the left periorbital region as well as in the superior aspect of the ret ro-orbital fat on the left. PARANASAL SINUSES: There is increased density in the left maxillary antra representing a combination of fat and soft tissue density as well as an air-fluid level. Mucosal thickening is identified in sev eral of the ethmoidal air cells and frontal sinuses. SOFT TISSUES: Air is identified in the periorbital soft tissues on the left especially superiorly. INFERIOR BRAIN: See results under brain CT scan OTHER: No other significant finding. IMPRESSION: Facial fractures on the left as noted above. There is a defect in the orbital floor on the left which has the appearance of a blowout fracture. Air is identified in the periorbital soft t issues on the left especially superiorly and air is identified in the retro-orbital fat superiorly on the left. There is increased density in the left maxillary antra representing a combination of fat and soft tissue density as well as an air-fluid level. Other findings as noted above TECHNICAL DOCUMENTATION: JOB ID: [id number] Quality ID # [id number]: Final reports with documentation of one or more dose reduction techniques (e.g., Au tomated exposure control, adjustment of the mA and/or kV according to patient size, use of iterative reconstruction technique) 2010 [employer]- All Rights Reserved Reading location - IP/workstation name: [email or web address]
== END ==
LOC: RAD 15:08
PROVIDERS: ATTEND Internal Medicine
DX: H53.2 Diplopia (principal); S02.32XA Fracture of orbital floor, left side, initial encounter for closed fracture; X58.XXXA Exposure to other specified factors, initial encounter
CPT/HCPCS: 70450; 70480